=== PATIENT | male | born 1985 | race Caucasian/White ===

== ENCOUNTER 2019-12-28 16:15 | Emergency (ER) | payer OTHER ==
[~2019-12-28] VITALS: Ht 187.9 cm; Wt 68.0 kg
[~2019-12-28 16:15] MED LIST: KEFLEX500 MG PO; MOTRIN800 MG PO; VICODIN ES 7501 TAB PO; ZOFRAN ODT4 MG SL
== END 2019-12-28 17:20 | disposition home or self-care (01) ==
LOC: ED 16:15
DX: S61.011A Laceration without foreign body of right thumb without damage to nail, initial encounter (principal); Z88.0 Allergy status to penicillin; W45.8XXA Other foreign body or object entering through skin, initial encounter; Y93.89 Activity, other specified; Y92.89 Other specified places as the place of occurrence of the external cause; Y99.8 Other external cause status

== ENCOUNTER 2020-01-27 17:16 | Emergency (ER) | payer SELFPAY ==
[~2020-01-27] VITALS: Ht 187.9 cm; Wt 68.0 kg
[2020-01-27] MEDS ORDERED: TAMIFLU 75MG CA75 MG PO (18:15)
== END 2020-01-27 19:00 | disposition home or self-care (01) ==
LOC: ED 17:16
DX: J10.1 Influenza due to other identified influenza virus with other respiratory manifestations (principal); Z88.0 Allergy status to penicillin

== ENCOUNTER 2023-10-26 18:49 | Emergency (ER) | payer SELFPAY ==
[~2023-10-26] VITALS: Ht 187.9 cm; Wt 74.8 kg
[~2023-10-26 18:49] MED LIST changes: +TAMIFLU 75MG CA75 MG PO
[2023-10-27 00:59] LABS: BASO % 0.2 % (0.0-1.0); EOS % 0.7 % (1.0-4.0); HEMATOCRIT 44.6 % (42.0-52.0); LYMPH # 0.9 10*3/uL (1.3-4.4); LYMPH % 22.7 % (27.0-41.0); MEAN CELL VOLUME 85.1 fl (80.0-94.0); MEAN CORPUSCULAR HGB 29.4 pg (27.0-31.0); MEAN CORPUSCULAR HGB CONC 34.5 g/dl (33.0-37.0); MEAN PLATELET VOLUME 9.1 fl (9.6-12.3); MONO # 0.5 10*3/uL (0.1-1.0); MONO % 13.3 % (3.0-9.0); NEUT # 2.5 10*3/uL (2.3-7.9); NEUT % 62.9 % (47.0-73.0); PLATELET COUNT AUTOMATED 156 10*3/uL (130-400); RED BLOOD COUNT 5.24 10*6/uL (4.50-5.90); RED CELL DISTRI WIDTH 11.9 % (0-14.5); WHITE BLOOD COUNT 4.1 10*3/uL (4.8-10.8)
[2023-10-27 01:20] LABS: ALKALINE PHOSPHATASE 66 U/L (46-116); BUN 14 mg/dl (9-23); CHLORIDE 100 mmol/L (98-107); POTASSIUM 3.6 mmol/L (3.4-5.1); SGPT/ALT 32 U/L (5-49); TOTAL PROTEIN 7.1 gm/dL (6.0-8.0)
[2023-10-27] MEDS ORDERED: TAMIFLU 75MG CA75 MG PO (02:30)
[2023-10-27] MEDS ORDERED: ONDANSETRON4 MG SL (02:30)
== END 2023-10-27 02:48 | disposition home or self-care (01) ==
LOC: ED 18:49
PROVIDERS: Family Medicine
DX: J10.1 Influenza due to other identified influenza virus with other respiratory manifestations (principal); R11.0 Nausea; F90.9 Attention-deficit hyperactivity disorder, unspecified type; Z88.0 Allergy status to penicillin; F17.290 Nicotine dependence, other tobacco product, uncomplicated; Z20.822 Contact with and (suspected) exposure to COVID-19